=== PATIENT | female | born 1950 | race Caucasian/White ===

== ENCOUNTER 2018-03-13 09:23 | Outpatient (CLI) | payer MEDICARE ==
--- NOTE | 2018-03-13 14:07 | MRI ---
MRI LUMBAR SPINE WITHOUT CONTRAST: INDICATION: History of spinal stenosis and back pain. COMPARISON: None. FINDINGS: Bone marrow signal intensity appears within normal limits. There is loss of the normal disk signal a nd height at all lumbar intervertebral levels but most severe at L5-S1. There is grade I anterolisth esis of L5 on S1 and L3 on L4. The conus is seen to terminate at approximately L1. The visualized r etroperitoneum demonstrates some mild scarring adjacent to the medial aspect of the left kidney which appears similar to a CT examination of 08/26/2016. At L5-S1, there is severe right and moderate left facet joint degenerative change. There is asymmetr ic broad-based pseudobulge with loss of disk space height inducing moderate left neural foraminal lee rowing. At L4-5, there is moderate facet joint degenerative change and a broad-based bulge. There is mild ne ural foraminal encroachment without definite impingement. At L3-4, there is advanced facet joint degenerative change and a broad-based bulge with mild neural f oraminal encroachment. At L2-3, there is a broad-based bulge with mild to moderate facet joint degenerative change, but no a ppreciable central canal or neural foraminal narrowing. At L1-L2, there is no appreciable central canal or neural foraminal narrowing. At T12-L1, there is no appreciable central canal or neural foraminal narrowing. IMPRESSION: 1. Moderate spondylosis of the lumbar spine most advanced at L3-4 through L5-S1. 2. Moderate left neural foraminal narrowing at L5-S1. 3. Grade I anterolisthesis of L3 on L4 and L5 on S1 likely related to facet degenerative changes. POS: DEEPIKA
== END 2018-03-13 09:24 | disposition home or self-care (01) ==
LOC: SCSMRI 09:23
PROVIDERS: ATTEND Specialist
DX: M48.062 Spinal stenosis, lumbar region with neurogenic claudication (principal); M47.816 Spondylosis without myelopathy or radiculopathy, lumbar region; M47.817 Spondylosis without myelopathy or radiculopathy, lumbosacral region; M99.83 Other biomechanical lesions of lumbar region; M43.16 Spondylolisthesis, lumbar region; M43.17 Spondylolisthesis, lumbosacral region
CPT/HCPCS: 72148

== ENCOUNTER 2018-05-18 08:33 | Outpatient (CLI) | payer MEDICARE ==
--- NOTE | 2018-05-18 10:48 | CT ---
EXAM: CT PULMONARY LUNG SCAN WITHOUT IV CONTRAST: Comparison: 10-22-16 History: Greater than 30 years of tobacco use. Low dose CT screening protocol. FINDINGS: No evidence for pulmonary nodules. Minimal atelectasis in the lingula showing slight increase from th e prior study with associated air bronchogram. Stable post-operative changes in the stomach with a sm all hiatal hernia. IMPRESSION: Lung RADS 1 - negative. No significant incidental findings. Lung RADS category S - none. Incidental p ulmonary finding, slightly progressive atelectasis in the lingula with an air bronchogram. Other inci dental suture material in the GE junction with probable small hiatal hernia. Continued annual follow up low dose screening CT is recommended. POS: DEEPIKA
== END 2018-05-18 08:34 | disposition home or self-care (01) ==
LOC: CT 08:33
PROVIDERS: ATTEND Family Medicine
DX: Z12.2 Encounter for screening for malignant neoplasm of respiratory organs (principal); Z87.891 Personal history of nicotine dependence
CPT/HCPCS: G0297

== ENCOUNTER 2018-07-30 08:52 | Outpatient (CLI) | payer MEDICARE ==
--- NOTE | 2018-07-30 09:55 | CT ---
CT LUMBAR SPINE: Technique: Multiple axial tomograms were obtained through the lumbar spine with multiplanar reconstru ction. Indications: Low back pain. FINDINGS: Exam is limited due to soft tissue attenuation artifact. Lumbar vertebrae show normal height. There are degenerative disc changes which are most prominent at L4-5 and L5-S1. Vacuum phenomenon seen at both of these levels with loss of disc space. Mild anterolisthesis of L3-4 measured at 4-5 mm. Mild anterolisthesis of L5-S1 also measured at 4-5 m m. No evidence of posterior spondylosis at either of these levels. L1-2: Mild disc bulge. No central canal or foraminal stenosis. L2-3: Mild disc bulge. Mild facet hypertrophy. Mild central canal stenosis. L3-4: Slight anterolisthesis. Mild diffuse disc bulge. No prominent facet hypertrophy at this level. Mild to moderate central canal stenosis. L4-5: Degenerative disc change. Mild disc bulge. Facet hypertrophy. Mild central canal stenosis. L5-S1: Degenerative disc change with mild anterolisthesis. Disc bulge and posterior hypertrophic britton ges compress the thecal sac. Mild central canal stenosis. Bilateral foraminal stenosis secondary to t he listhesis and hypertrophic change. IMPRESSION: Degenerative disc changes are most prominent at L4-5 and L5-S1. Bilateral foraminal stenosis at L5-S1 . Central canal stenosis at L3-4 as described above. POS: DEEPIKA
== END 2018-07-30 08:53 | disposition home or self-care (01) ==
LOC: TBSIIMAG 08:52
PROVIDERS: ATTEND Neurological Surgery
DX: M51.16 Intervertebral disc disorders with radiculopathy, lumbar region (principal); M51.37 Other intervertebral disc degeneration, lumbosacral region; M48.061 Spinal stenosis, lumbar region without neurogenic claudication; M48.07 Spinal stenosis, lumbosacral region
CPT/HCPCS: 72131

== ENCOUNTER 2019-05-31 08:53 | Outpatient (CLI) | payer MEDICARE ==
--- NOTE | 2019-05-31 10:29 | CT ---
EXAM: CT Pulmonary Lung Scan PROVIDED CLINICAL HISTORY: Tobacco abuse. 30+ pack year history of smoking. Follow-up evaluation. COMPARISON: 05/18/2018 FINDINGS: A calcified granuloma is again seen in the right middle lobe. No noncalcified pulmonary nodule or mas s is seen. No pleural effusion is identified. Mild persistent atelectasis is again noted in the lingula. Mild vascular calcifications are seen in the coronary arteries and in the thoracic aorta. Lack of intravenous contrast limits sensitivity for evaluation of mediastinal structures and vasculat ure. However, no definite enlarged lymph nodes are seen. Again noted is a hiatal hernia with postoperative changes in the region of the stomach. This is a sta ble finding. Mild degenerative changes are again seen in the spine. IMPRESSION: Lung RADS category 1-negative. No pulmonary nodule is visualized. Continued annual screening with low -dose CT scan in 12 months is recommended. 2. Lung RADS S-persistent volume loss in the lingula. 3. Hiatal hernia with postoperative changes of the proximal stomach.
== END 2019-05-31 08:54 | disposition home or self-care (01) ==
LOC: CT 08:53
PROVIDERS: ATTEND Family Medicine
DX: Z12.2 Encounter for screening for malignant neoplasm of respiratory organs (principal); K44.9 Diaphragmatic hernia without obstruction or gangrene; J98.4 Other disorders of lung; Z87.891 Personal history of nicotine dependence; Z98.890 Other specified postprocedural states
CPT/HCPCS: G0297

== ENCOUNTER 2019-06-01 10:07 | Outpatient (CLI) | payer MEDICARE ==
--- NOTE | 2019-06-01 10:58 | MMO ---
Bilateral MAMMO Bilat Screen [facility]. CLINICAL HISTORY: Patient is 68 years old and is seen for screening. The patient has no family history of breast cancer. The patient has no personal history of cancer. VIEWS: The views performed were: bilateral craniocaudal with tomosynthesis and bilateral mediolateral oblique with tomosynthesis. FILMS COMPARED: The present examination has been compared to a prior imaging study performed at [facility] on 11/21/2016. This study has been interpreted with the assistance of computer-aided detection. MAMMOGRAM FINDINGS: The breasts are almost entirely fat. There are no suspicious masses, suspicious calcifications, or new areas of architectural distortion. IMPRESSION: THERE IS NO MAMMOGRAPHIC EVIDENCE OF MALIGNANCY. A ROUTINE FOLLOW-UP MAMMOGRAM IN 1 YEAR IS RECOMMENDED. THE RESULTS OF THIS EXAM WERE SENT TO THE PATIENT. ACR BI-RADS Category 1 - Negative MAMMOGRAPHY NOTE: 1. A negative mammogram report should not delay a biopsy if a dominant of clinically suspicious mass is present. 2. Approximately 10% to 15% of breast cancers are not detected by mammography. 3. Adenosis and dense breasts may obscure an underlying neoplasm. Reported by: LAILA PALOMARES MD Electonically Signed: [id number]
--- NOTE | 2019-06-01 11:06 | BD ---
EXAM: DEXA bone density examination HISTORY: 68-year-old postmenopausal female for screening COMPARISON: None FINDINGS: L1--bone mineral density 0.903 g/sq cm; T score -0.8 L2--bone mineral density 1.044 g/sq cm; T score 0.1 L3--bone mineral density 1.144 g/sq cm; T score 0.5 L4--bone mineral density 0.999 g/sq cm; T score -0.6 Total L1-L4--bone mineral density 1.028 g/sq cm; T score -0.2 Left femoral neck--bone mineral density0.742; T score -1.0 Total proximal left femur--bone mineral density 1.006; T score 0.5 IMPRESSION: Normal bone density
== END 2019-06-01 10:08 | disposition home or self-care (01) ==
LOC: BICMAMMO 10:07
PROVIDERS: ATTEND Family Medicine
DX: Z12.31 Encounter for screening mammogram for malignant neoplasm of breast (principal); Z13.820 Encounter for screening for osteoporosis; Z78.0 Asymptomatic menopausal state
CPT/HCPCS: 77063; 77067; 77080

== ENCOUNTER 2020-06-07 13:05 | Outpatient (CLI) | payer MEDICARE ==
--- NOTE | 2020-06-07 13:32 | MMO ---
Bilateral MAMMO Bilat Screen [facility]. CLINICAL HISTORY: Patient is 69 years old and is seen for screening. The patient has no family history of breast cancer. The patient has no personal history of cancer. VIEWS: The views performed were: bilateral craniocaudal with tomosynthesis and bilateral mediolateral oblique with tomosynthesis. FILMS COMPARED: The present examination has been compared to prior imaging studies performed at [facility] on 11/21/2016 and 06/01/2019. This study has been interpreted with the assistance of computer-aided detection. MAMMOGRAM FINDINGS: There are scattered fibroglandular densities. There are stable benign appearing calcifications seen in both breasts. There are no suspicious masses, suspicious calcifications, or new areas of architectural distortion. IMPRESSION: THERE IS NO MAMMOGRAPHIC EVIDENCE OF MALIGNANCY. A ROUTINE FOLLOW-UP MAMMOGRAM IN 1 YEAR IS RECOMMENDED. THE RESULTS OF THIS EXAM WERE SENT TO THE PATIENT. ACR BI-RADS Category 2 - Benign finding MAMMOGRAPHY NOTE: 1. A negative mammogram report should not delay a biopsy if a dominant of clinically suspicious mass is present. 2. Approximately 10% to 15% of breast cancers are not detected by mammography. 3. Adenosis and dense breasts may obscure an underlying neoplasm. Reported by: KAITLYN MULLER MD Electonically Signed: [id number]
== END 2020-06-07 13:06 | disposition home or self-care (01) ==
LOC: BICMAMMO 13:05
PROVIDERS: ATTEND Family Medicine
DX: Z12.31 Encounter for screening mammogram for malignant neoplasm of breast (principal)
CPT/HCPCS: 77063; 77067

== ENCOUNTER 2020-06-08 14:44 | Outpatient (CLI) | payer MEDICARE ==
--- NOTE | 2020-06-08 17:48 | CT ---
CT PULMONARY LUNG SCAN: Date: 06/08/2020 HISTORY: Smoker for 30 years. Quit 9 years ago. One pack/day smoker. COMPARISON: 05/31/2019 exam. FINDINGS: The lungs are clear of any infiltrates. No pulmonary nodules are identified. I do not appreciate any significant mediastinal adenopathy. Small hiatal hernia is noted. The patient has had previous gastric surgery. IMPRESSION: Lung-RADS Category 1 - Negative. Annual follow-up recommended. POS: LISA
== END 2020-06-08 14:45 | disposition home or self-care (01) ==
LOC: BICCT 14:44
PROVIDERS: ATTEND Family Medicine
DX: Z12.2 Encounter for screening for malignant neoplasm of respiratory organs (principal); Z87.891 Personal history of nicotine dependence
CPT/HCPCS: 71271

== ENCOUNTER 2020-06-16 17:00 | Outpatient (CLI) | payer MEDICARE | END 2020-06-16 17:01 | disposition home or self-care (01) | LOC: SLEEPLAB 17:00 | PROVIDERS: ATTEND Family Medicine | DX: G47.33 Obstructive sleep apnea (adult) (pediatric) (principal); K21.9 Gastro-esophageal reflux disease without esophagitis; R53.83 Other fatigue; R40.0 Somnolence; E66.9 Obesity, unspecified; R06.83 Snoring; R09.02 Hypoxemia; Z68.43 Body mass index [BMI] 50.0-59.9, adult | CPT/HCPCS: 95806 ==

== ENCOUNTER 2020-07-14 19:00 | Outpatient (CLI) | payer MEDICARE | END 2020-07-14 19:01 | disposition home or self-care (01) | LOC: SLEEPLAB 19:00 | PROVIDERS: ATTEND Family Medicine | DX: G47.33 Obstructive sleep apnea (adult) (pediatric) (principal); R53.83 Other fatigue; R06.83 Snoring; K21.9 Gastro-esophageal reflux disease without esophagitis; G47.10 Hypersomnia, unspecified; R09.02 Hypoxemia; E66.9 Obesity, unspecified; Z68.43 Body mass index [BMI] 50.0-59.9, adult | CPT/HCPCS: 95811 ==

== ENCOUNTER 2022-04-03 08:31 | Outpatient (CLI) | payer MEDICARE | END 2022-04-03 08:32 | disposition home or self-care (01) | LOC: SCSRAD 08:31 | PROVIDERS: ATTEND Family Medicine | DX: M47.26 Other spondylosis with radiculopathy, lumbar region (principal) | CPT/HCPCS: 72100 ==

== ENCOUNTER 2022-05-02 10:48 | Outpatient (CLI) | payer MEDICARE ==
[2022-05-02] MEDS ORDERED: Iopamidol 370 76% 100 ML VIAL ONE (11:39)
== END 2022-05-02 10:49 | disposition home or self-care (01) ==
LOC: BICCT 10:48
PROVIDERS: ATTEND Family Medicine
DX: N28.89 Other specified disorders of kidney and ureter (principal); R19.09 Other intra-abdominal and pelvic swelling, mass and lump; Z98.84 Bariatric surgery status
CPT/HCPCS: 74178; 82565; Q9967

== ENCOUNTER 2022-05-20 06:11 | Day surgery (SDC) | payer MEDICARE ==
[2022-05-17 12:52] VITALS: BMI 46.7
[2022-05-20] MEDS ORDERED: PROPOFOL 200 MG/20 ML VIAL ONE (09:27)
[2022-05-20] MEDS ORDERED: Lidocaine 1% PF 5 ML VIAL ONE (09:27)
== END 2022-05-20 10:36 | disposition home or self-care (01) ==
LOC: SDC 06:11
PROVIDERS: ATTEND Internal Medicine
PROC: 0DBM8ZX Excision of Descending Colon, Via Natural or Artificial Opening Endoscopic, Diagnostic (ICD-10-PCS; principal; 2022-05-20)
PROC: 0DBN8ZX Excision of Sigmoid Colon, Via Natural or Artificial Opening Endoscopic, Diagnostic (ICD-10-PCS; 2022-05-20)
PROC: 0DBP8ZX Excision of Rectum, Via Natural or Artificial Opening Endoscopic, Diagnostic (ICD-10-PCS; 2022-05-20)
DX: Z12.11 Encounter for screening for malignant neoplasm of colon (principal); D12.4 Benign neoplasm of descending colon; K62.1 Rectal polyp; K57.30 Diverticulosis of large intestine without perforation or abscess without bleeding; K64.8 Other hemorrhoids; J45.909 Unspecified asthma, uncomplicated; K21.9 Gastro-esophageal reflux disease without esophagitis; I10 Essential (primary) hypertension; G47.33 Obstructive sleep apnea (adult) (pediatric); Z86.010 Personal history of colon polyps; Z87.891 Personal history of nicotine dependence; Z79.899 Other long term (current) drug therapy; Z90.49 Acquired absence of other specified parts of digestive tract
CPT/HCPCS: 88305; J2704

== ENCOUNTER 2022-07-28 09:20 | Emergency (ER) | payer MEDICARE ==
[2022-07-28] MEDS ORDERED: Ondansetron PF 4 MG/2 ML Vial ONE (09:58)
[2022-07-28 10:12] LABS: Hemoglobin 12.2 g/dL (12.0-16.0); Mean Corpuscular HGB CONC 32.2 g/dL (32.0-36.0); Mean Corpuscular Hemoglobin 30.1 pg (27.0-31.0); Mean Corpuscular Volume 93.4 fl (78.0-98.0); Mean Platelet Volume 9.4 fL (7.4-10.4); Platelet Count 227 10x3/uL (130-400); RBC Distribution Width 11.8 % (11.5-14.5); Red Blood Cell (RBC) Count 4.07 mill/uL (4.20-5.40); White Blood Cell (WBC) Count 20.1 10x3/uL (4.8-10.8)
[2022-07-28 10:31] LABS: ALT (SGPT) 14 U/L (8-55); AST (SGOT) 15 U/L (5-34); Albumin 3.6 g/dL (3.4-4.8); Alkaline Phosphatase 77 U/L (40-110); Anion Gap 10 mmol/L (10-20); BUN (Urea Nitrogen) 15 mg/dL (9.8-20.1); Bilirubin, Total 0.5 mg/dL (0.2-1.2); Calc. Creatinine Clearance 0 mL/min (70-130); Calcium 9.1 mg/dL (7.8-10.44); Carbon Dioxide 25 mmol/L (23-31); Chloride 101 mmol/L (98-107); Estimated GFR 58; Glucose 115 mg/dL (83-110); Lipase 4 U/L (8-78); Potassium 3.7 mmol/L (3.5-5.1); Protein, Total 6.6 g/dL (5.8-8.1); Sodium 132 mmol/L (136-145)
[2022-07-28 10:45] LABS: Bilirubin Negative (Negative); Blood, Urine Negative (Negative); Clarity Clear (Clear); Glucose, Urine (Dipstick) Normal (Negative); Ketone, Urine Negative (Negative); Leukocyte 250 Leu/uL (Negative); Nitrite Negative (Negative); Protein, Urine (Dipstick) 50 mg/dL (Neg-Trace); RBC/HPF 0-3 HPF (0-3); Specific Gravity, Urine 1.027 (1.002-1.036); WBC/HPF 21-50 HPF (0-3); pH, Urine 5.5 (5.0-9.0)
[2022-07-28 10:46] LABS: Bacteria/HPF Rare-Few HPF (None Seen)
[2022-07-28 10:51] LABS: Band 11 % (5-11); Eosinophils 1 % (0-10); Lymphocytes 4 % (21-51); MDiff Complete? YES; Monocytes 4 % (0-10); Neutrophil 79 % (42-75); Platelet Morphology Comment Appears Adequate; RBC Morphology Normal; Reactive Lymphocytes 1 % (0-10)
[2022-07-28] MEDS ORDERED: cefTRIAXone (ROCEPHIN) 1 GM VIAL ONE (11:32)
== END 2022-07-28 12:36 | disposition home or self-care (01) ==
LOC: ERS 09:20
DX: N30.00 Acute cystitis without hematuria (principal); E86.0 Dehydration; D72.829 Elevated white blood cell count, unspecified; Z87.891 Personal history of nicotine dependence
CPT/HCPCS: 36415; 71045; 80053; 81003; 81015; 83690; 84484; 85025; 87086; 93005; 94760; 96361; 96365; 96375; J0696; J2405

== ENCOUNTER 2023-07-08 00:50 | Emergency (ER) | payer MEDICARE ==
[2023-07-08 02:09] LABS: #Monocytes 0.5 thou/uL (0.11-0.59); #Neutrophils 6.2 thou/uL (1.40-6.50); %Basophils 0.1 % (0.0-1.0); %Lymphocytes 6.5 % (21.0-51.0); %Monocytes 6.3 % (0.0-10.0); %Neutrophils 86.7 % (42.0-75.0); Hematocrit 28.5 % (36.0-47.0); Hemoglobin 9.8 g/dL (12.0-16.0); Mean Corpuscular HGB CONC 34.4 g/dL (32.0-36.0); Mean Platelet Volume 10.2 fL (7.4-10.4); Platelet Count 161 10x3/uL (130-400); RBC Distribution Width 14.6 % (11.5-14.5); Red Blood Cell (RBC) Count 2.88 mill/uL (4.20-5.40); White Blood Cell (WBC) Count 7.2 10x3/uL (4.8-10.8)
[2023-07-08 02:26] LABS: ALT (SGPT) 7 U/L (8-55); AST (SGOT) 17 U/L (5-34); Albumin 3.6 g/dL (3.4-4.8); Alkaline Phosphatase 93 U/L (40-110); Anion Gap 15 mmol/L (10-20); BUN (Urea Nitrogen) 12 mg/dL (9.8-20.1); Bilirubin, Total 0.8 mg/dL (0.2-1.2); Calc. Creatinine Clearance 0 mL/min (70-130); Calcium 8.5 mg/dL (7.8-10.44); Carbon Dioxide 19 mmol/L (23-31); Chloride 103 mmol/L (98-107); Estimated GFR 69; Globulin 2.8 g/dL (2.4-3.5); Glucose 124 mg/dL (83-110); Potassium 4.1 mmol/L (3.5-5.1); Protein, Total 6.4 g/dL (5.8-8.1); Sodium 133 mmol/L (136-145)
[2023-07-08] MEDS ORDERED: Ibuprofen 800 MG TAB ONE (04:33)
== END 2023-07-08 06:25 | disposition home or self-care (01) ==
LOC: ERS 00:50
DX: R06.00 Dyspnea, unspecified (principal); I11.0 Hypertensive heart disease with heart failure; I50.9 Heart failure, unspecified; Z87.891 Personal history of nicotine dependence; Z79.01 Long term (current) use of anticoagulants; Z79.899 Other long term (current) drug therapy
CPT/HCPCS: 70450; 71045; 71275; 80053; 83605; 83880; 84484; 85025; 85379; 93005; 94760

== ENCOUNTER 2023-07-13 19:19 | Inpatient (IN) | payer MEDICARE ==
[2023-07-13 20:20] LABS: #Eosinphils 0.1 thou/uL (0.0-0.7); #Monocytes 0.9 thou/uL (0.11-0.59); %Basophils 0.2 % (0.0-1.0); %Eosinophils 1.3 % (0.0-10.0); %Lymphocytes 13.8 % (21.0-51.0); %Monocytes 11.1 % (0.0-10.0); %Neutrophils 72.9 % (42.0-75.0); Hematocrit 30.7 % (36.0-47.0); Hemoglobin 10.3 g/dL (12.0-16.0); Mean Corpuscular HGB CONC 33.6 g/dL (32.0-36.0); Mean Corpuscular Volume 101.3 fl (78.0-98.0); Mean Platelet Volume 9.9 fL (7.4-10.4); Platelet Count 236 10x3/uL (130-400); RBC Distribution Width 14.6 % (11.5-14.5); Red Blood Cell (RBC) Count 3.03 mill/uL (4.20-5.40); White Blood Cell (WBC) Count 8.3 10x3/uL (4.8-10.8)
[2023-07-13 20:40] LABS: ALT (SGPT) Less than 7 U/L (8-55); AST (SGOT) 12 U/L (5-34); Alkaline Phosphatase 107 U/L (40-110); Anion Gap 13 mmol/L (10-20); BUN (Urea Nitrogen) 13 mg/dL (9.8-20.1); Bilirubin, Total 0.8 mg/dL (0.2-1.2); Calc. Creatinine Clearance 0 mL/min (70-130); Calcium 8.8 mg/dL (7.8-10.44); Carbon Dioxide 28 mmol/L (23-31); Chloride 100 mmol/L (98-107); Estimated GFR 69; Globulin 2.6 g/dL (2.4-3.5); Glucose 116 mg/dL (83-110); Potassium 3.5 mmol/L (3.5-5.1); Protein, Total 6.6 g/dL (5.8-8.1); Sodium 137 mmol/L (136-145)
[2023-07-13] MEDS ORDERED: Sodium Chloride 0.9% 100 ML ONE (22:15)
[2023-07-13] MEDS ORDERED: Morphine 4 MG/ML VIAL ONE (22:15)
[2023-07-13] MEDS ORDERED: Cefepime 2 GM VIAL ONE (22:15)
[2023-07-13] MEDS ORDERED: Acetaminophen 650 MG Suppository PR PRN (23:07)
[2023-07-13] MEDS ORDERED: Ondansetron ODT 4 MG TAB PO PRN (23:07)
[2023-07-13] MEDS ORDERED: Acetaminophen 325 MG TAB PO PRN (23:07)
[2023-07-13] MEDS ORDERED: Ondansetron PF 4 MG/2 ML Vial IVP PRN (23:07)
[2023-07-13 23:42] VITALS: BMI 43.1
[2023-07-14] MEDS ORDERED: Ipratropium/Albuterol 3 ML NEB NEB PRN (00:05)
[2023-07-14] MEDS ORDERED: HYDROcodone/Acetaminophen 10/325 mg Tablet PO PRN (04:08)
[2023-07-14 05:17] LABS: #Eosinphils 0.1 thou/uL (0.0-0.7); #Monocytes 0.9 thou/uL (0.11-0.59); #Neutrophils 5.2 thou/uL (1.40-6.50); %Basophils 0.1 % (0.0-1.0); %Eosinophils 1.3 % (0.0-10.0); %Lymphocytes 13.6 % (21.0-51.0); %Monocytes 11.8 % (0.0-10.0); %Neutrophils 72.5 % (42.0-75.0); Hematocrit 27.5 % (36.0-47.0); Hemoglobin 9.1 g/dL (12.0-16.0); Mean Corpuscular HGB CONC 33.1 g/dL (32.0-36.0); Mean Corpuscular Hemoglobin 33.7 pg (27.0-31.0); Mean Corpuscular Volume 101.9 fl (78.0-98.0); Platelet Count 213 10x3/uL (130-400); RBC Distribution Width 14.8 % (11.5-14.5); White Blood Cell (WBC) Count 7.2 10x3/uL (4.8-10.8)
[2023-07-14 05:59] LABS: Anion Gap 11 mmol/L (10-20); BUN (Urea Nitrogen) 12 mg/dL (9.8-20.1); Calc. Creatinine Clearance 110 mL/min (70-130); Calcium 8.5 mg/dL (7.8-10.44); Carbon Dioxide 28 mmol/L (23-31); Chloride 102 mmol/L (98-107); Estimated GFR 75; Glucose 105 mg/dL (83-110); Iron 25 ug/dL (50-170); Iron Binding Capacity, Total 320 mcg/dL (265-497); Potassium 3.3 mmol/L (3.5-5.1); Sodium 138 mmol/L (136-145)
[2023-07-14] MEDS: Apixaban 5 MG TAB PO SCH (08:27)
[2023-07-14] MEDS: Furosemide 20 MG TAB PO SCH (08:27)
[2023-07-14] MEDS: Lisinopril 2.5 MG TAB PO SCH (08:27)
[2023-07-14] MEDS: Famotidine 20 MG TAB PO SCH (08:27)
[2023-07-14] MEDS: cefTRIAXone\\ROCEPHIN 1 GM in Sodium Chloride 0.9% 100 ML IVPB SCH (08:31)
[2023-07-14] MEDS ORDERED: Non-Formulary Item 1 EACH (Potassium Chloride [Potassium Chloride] 20 MEQ Tablet.Er) PO SCH (09:00)
[2023-07-14 13:24] LABS: Ferritin 74.04 ng/mL (10-291)
[2023-07-14] MEDS: Morphine 2 MG/ML VIAL SLOW IVP SCH (21:45)
[2023-07-15 10:32] LABS: Anion Gap 8 mmol/L (10-20); BUN (Urea Nitrogen) 9 mg/dL (9.8-20.1); Calc. Creatinine Clearance 106 mL/min (70-130); Calcium 8.9 mg/dL (7.8-10.44); Carbon Dioxide 34 mmol/L (23-31); Chloride 102 mmol/L (98-107); Estimated GFR 72; Glucose 140 mg/dL (83-110); Potassium 2.7 mmol/L (3.5-5.1); Sodium 141 mmol/L (136-145)
[2023-07-15 12:06] VITALS: BP 123/51; TEMP 98.1
[2023-07-15] MEDS: Potassium Chloride 20 MEQ TAB PO SCH (12:16)
[2023-07-15 12:58] LABS: Campy jejuni + coli by PCR Negative (Negative); STEC Shiga Toxin 1+2 Negative (Negative); Salmonella spp. by PCR Negative (Negative); Shigella spp + EIEC by PCR Negative (Negative)
== END 2023-07-15 15:13 | disposition home or self-care (01) | DRG 603 ==
LOC: ERS 19:19 → T4-B 22:33 → OBSVTOIN 07-15 09:50
PROVIDERS: ADMIT Student in an Organized Health Care Education/Training Program; ATTEND Internal Medicine
DX: L03.116 Cellulitis of left lower limb (principal); K57.30 Diverticulosis of large intestine without perforation or abscess without bleeding; I11.0 Hypertensive heart disease with heart failure; I50.9 Heart failure, unspecified; B95.61 Methicillin susceptible Staphylococcus aureus infection as the cause of diseases classified elsewhere; B95.5 Unspecified streptococcus as the cause of diseases classified elsewhere; D53.9 Nutritional anemia, unspecified; Z96.653 Presence of artificial knee joint, bilateral; Z90.710 Acquired absence of both cervix and uterus; Z98.41 Cataract extraction status, right eye; Z98.42 Cataract extraction status, left eye; Z87.891 Personal history of nicotine dependence; Z86.711 Personal history of pulmonary embolism
CPT/HCPCS: 36415; 80048; 80053; 82607; 82728; 83540; 83550; 85025; 85379; 87324; 87449; 87505; 93005; 96374; 96375; 96376; G0378; J0692; J0696; J2270; J3490

== ENCOUNTER 2023-11-07 09:36 | Emergency (ER) | payer MEDICARE ==
[2023-11-07] MEDS ORDERED: Lidocaine 4% Patch TD SCH (10:30)
[2023-11-07 11:20] LABS: #Basophils Less than 0.03 10x3/uL (0.0-0.2); %Basophils 0.4 % (0.0-1.0); %Eosinophils 2.1 % (0.0-10.0); %Lymphocytes 20.1 % (21.0-51.0); %Monocytes 10.5 % (0.0-10.0); %Neutrophils 66.5 % (42.0-75.0); Hematocrit 32.5 % (36.0-47.0); Hemoglobin 10.3 g/dL (12.0-16.0); Mean Corpuscular HGB CONC 31.7 g/dL (32.0-36.0); Mean Corpuscular Hemoglobin 31.6 pg (27.0-31.0); Mean Corpuscular Volume 99.7 fL (78.0-98.0); Mean Platelet Volume 9.8 fL (7.4-10.4); Platelet Count 253 10x3/uL (130-400); RBC Distribution Width 13.6 % (11.5-14.5); Red Blood Cell (RBC) Count 3.26 mill/uL (4.20-5.40)
[2023-11-07 11:41] LABS: CRP,High Sensitivity (Inhouse) 0.08 mg/dL (< or = 0.5)
[2023-11-07 11:42] LABS: ALT (SGPT) 10 U/L (8-55); AST (SGOT) 18 U/L (5-34); Albumin 3.7 g/dL (3.4-4.8); Alkaline Phosphatase 113 U/L (40-110); Anion Gap 15 mmol/L (10-20); BUN (Urea Nitrogen) 14 mg/dL (9.8-20.1); Bilirubin, Total 0.5 mg/dL (0.2-1.2); Calc. Creatinine Clearance 0 mL/min (70-130); Calcium 9.6 mg/dL (7.8-10.44); Carbon Dioxide 20 mmol/L (23-31); Chloride 109 mmol/L (98-107); Estimated GFR 60; Glucose 96 mg/dL (83-110); Protein, Total 6.7 g/dL (5.8-8.1); Sodium 140 mmol/L (136-145)
[2023-11-07] MEDS ORDERED: HYDROcodone/Acetaminophen 7.5/325 mg Tablet ONE (12:42)
[2023-11-07] MEDS ORDERED: Transdermal Patch Removal TOP SCH (21:00)
== END 2023-11-07 13:10 | disposition home or self-care (01) ==
LOC: ERS 09:36
DX: S80.12XA Contusion of left lower leg, initial encounter (principal); S80.212A Abrasion, left knee, initial encounter; M85.862 Other specified disorders of bone density and structure, left lower leg; M25.462 Effusion, left knee; I11.0 Hypertensive heart disease with heart failure; I50.9 Heart failure, unspecified; W01.0XXA Fall on same level from slipping, tripping and stumbling without subsequent striking against object, initial encounter; Z87.891 Personal history of nicotine dependence; Z79.899 Other long term (current) drug therapy; Z79.01 Long term (current) use of anticoagulants
CPT/HCPCS: 36415; 80053; 85025; 86141

== ENCOUNTER 2024-04-11 10:44 | Emergency (ER) | payer MEDICARE ==
[2024-04-11 11:19] LABS: #Basophils 0.05 10x3/uL (0.0-0.2); %Basophils 0.6 % (0.0-1.0); %Eosinophils 1.3 % (0.0-10.0); %Lymphocytes 12.1 % (21.0-51.0); %Monocytes 7.2 % (0.0-10.0); %Neutrophils 77.1 % (42.0-75.0); Hematocrit 32.7 % (36.0-47.0); Hemoglobin 10.3 g/dL (12.0-16.0); Mean Corpuscular HGB CONC 31.5 g/dL (32.0-36.0); Mean Corpuscular Hemoglobin 31.3 pg (27.0-31.0); Mean Corpuscular Volume 99.4 fL (78.0-98.0); Mean Platelet Volume 9.8 fL (7.4-10.4); Platelet Count 307 10x3/uL (130-400); RBC Distribution Width 14.6 % (11.5-14.5); Red Blood Cell (RBC) Count 3.29 mill/uL (4.20-5.40)
[2024-04-11] MEDS ORDERED: Iopamidol-370 76% 500 ML MDV (1 ML CHARGE) ONE (11:26)
[2024-04-11 11:33] LABS: ALT (SGPT) 11 U/L (8-55); AST (SGOT) 11 U/L (5-34); Albumin 2.7 g/dL (3.4-4.8); Alkaline Phosphatase 107 U/L (40-110); Anion Gap 15 mmol/L (10-20); BUN (Urea Nitrogen) 13 mg/dL (9.8-20.1); Bilirubin, Total 0.4 mg/dL (0.2-1.2); Calc. Creatinine Clearance 0 mL/min (70-130); Calcium 8.8 mg/dL (7.8-10.44); Carbon Dioxide 21 mmol/L (23-31); Chloride 106 mmol/L (98-107); Estimated GFR 58; Globulin 3.2 g/dL (2.4-3.5); Glucose 121 mg/dL (83-110); Potassium 3.7 mmol/L (3.5-5.1); Protein, Total 5.9 g/dL (5.8-8.1); Sodium 138 mmol/L (136-145)
[2024-04-11 11:38] LABS: Troponin I Less than 0.010 ng/mL (< 0.028)
== END 2024-04-11 14:45 | disposition home or self-care (01) ==
LOC: ERS 10:44
DX: R09.81 Nasal congestion (principal); R06.02 Shortness of breath; I11.0 Hypertensive heart disease with heart failure; I50.9 Heart failure, unspecified; Z87.891 Personal history of nicotine dependence
CPT/HCPCS: 36415; 71045; 71275; 80053; 83880; 84484; 85025; 85379; 93005

== ENCOUNTER 2025-04-07 06:06 | Day surgery (SDC) | payer MEDICARE ==
[2025-04-06 10:38] VITALS: BMI 42.9
[~2025-04-07 06:06] MED LIST: EPINEPHrine 0.3 MG in Ophthalmic Irrigation Solution 500 ML IRR SCH
[2025-04-07] MEDS ORDERED: Cyclopentolate 1% Opth Drop 2 ML BOT ONE (06:27)
[2025-04-07] MEDS ORDERED: Lidocaine 1% PF 5 ML VIAL ONE ×2 (06:45→07:18)
[2025-04-07] MEDS ORDERED: CEFAZOLIN 1 GM VIAL ONE (07:18)
[2025-04-07] MEDS ORDERED: PROPOFOL 200 MG/20 ML VIAL ONE (07:18)
[2025-04-07] MEDS ORDERED: Maxitrol 0.1% Opth Oint 3.5 GM TUBE ONE (07:18)
[2025-04-07] MEDS ORDERED: Lidocaine 4% PF 5 ML AMP ONE (07:18)
== END 2025-04-07 08:25 | disposition home or self-care (01) ==
LOC: SDC 06:06
PROVIDERS: ATTEND Ophthalmology Retina Specialist
PROC: 08B53ZZ Excision of Left Vitreous, Percutaneous Approach (ICD-10-PCS; principal; 2025-04-07)
DX: H43.312 Vitreous membranes and strands, left eye (principal); Z87.891 Personal history of nicotine dependence
CPT/HCPCS: 67041; J0166; J0690; J1100; J2003; J2704; J3010; J3490